=== PATIENT | female | born 1940 | race Caucasian/White ===

== ENCOUNTER 2022-11-15 13:24 | Inpatient (IN) | payer MEDICARE ==
[2022-11-15 13:59] LABS: #Basophils 0.1 10x3/uL (0.0-0.2); #Eosinphils 0.1 10x3/uL (0.0-0.5); #Monocytes 0.6 10x3/uL (0.0-1.1); #Neutrophils 5.6 10x3/uL (1.5-8.4); %Basophils 0.8 % (0.0-2.0); %Eosinophils 1.3 % (0.0-6.0); %Lymphocytes 24.4 % (18.0-47.0); %Neutrophils 65.9 % (40.0-75.0); Hemoglobin 15.4 g/dL (12.0-15.5); Mean Corpuscular HGB CONC 33.6 g/dL (32.0-36.0); Mean Corpuscular Hemoglobin 30.4 pg (27.0-33.0); Mean Corpuscular Volume 90.7 fl (81.6-98.3); Mean Platelet Volume 10.4 fl (7.4-10.4); Platelet Count 235 10x3/uL (150-450); RBC Distribution Width 12.2 % (11.5-14.5); Red Blood Cell (RBC) Count 5.06 10x6/uL (3.90-5.03); White Blood Cell (WBC) Count 8.4 10x3/uL (3.5-10.5)
[2022-11-15] MEDS ORDERED: Iopamidol 370 76% 100 ML VIAL ONE (13:59)
[2022-11-15 14:12] LABS: INR-International Normal Ratio 0.9; PTT 25.7 sec (22.0-33.0); Prothrombin Time 9.9 sec (9.5-12.1)
[2022-11-15] MEDS ORDERED: Aspirin Chewable 81 MG TAB ONE (14:12)
[2022-11-15 14:14] LABS: ALT (SGPT) 17 U/L (8-55); AST (SGOT) 25 U/L (5-34); Alkaline Phosphatase 81 U/L (40-110); Anion Gap 16 mmol/L (10-20); BUN (Urea Nitrogen) 14 mg/dL (9.8-20.1); Bilirubin, Total 1.7 mg/dL (0.2-1.2); Calc. Creatinine Clearance 0 mL/min (70-130); Calcium 9.8 mg/dL (7.8-10.44); Carbon Dioxide 24 mmol/L (23-31); Chloride 106 mmol/L (98-107); Estimated GFR 68; Globulin 2.2 g/dL (2.4-3.5); Glucose 90 mg/dL (83-110); Potassium 4.3 mmol/L (3.5-5.1); Protein, Total 7.2 g/dL (5.8-8.1); Sodium 142 mmol/L (136-145)
[2022-11-15] MEDS ORDERED: Ondansetron ODT 4 MG TAB PO PRN (15:17)
[2022-11-15] MEDS ORDERED: hydrALAZINE 20 MG/ML VIAL SLOW IVP PRN (15:17)
[2022-11-15] MEDS ORDERED: Ondansetron PF 4 MG/2 ML Vial IVP PRN (15:17)
[2022-11-15] MEDS ORDERED: Acetaminophen 325 MG TAB PO PRN (15:17)
[2022-11-15] MEDS ORDERED: Acetaminophen 650 MG Suppository PR PRN (15:17)
[2022-11-15] MEDS ORDERED: Calcium Carbonate 500 MG ChewTAB PO PRN (15:17)
[2022-11-15] MEDS ORDERED: Senokot S 8.6-50 MG TAB PO PRN (15:17)
[2022-11-15] MEDS ORDERED: Clopidogrel Bisulfate 75 MG TAB PO SCH (17:30)
[2022-11-15 17:48] VITALS: BMI 28.0
[2022-11-15] MEDS: Sodium Chloride 0.9% 1,000 ML IV SCH (17:51)
[2022-11-15] MEDS: Atorvastatin Calcium 40 MG TAB PO SCH (20:38)
[2022-11-16 04:09] LABS: #Basophils 0.1 10x3/uL (0.0-0.2); #Eosinphils 0.2 10x3/uL (0.0-0.5); #Monocytes 0.7 10x3/uL (0.0-1.1); #Neutrophils 3.9 10x3/uL (1.5-8.4); %Basophils 0.8 % (0.0-2.0); %Monocytes 10.1 % (0.0-10.0); %Neutrophils 54.8 % (40.0-75.0); Hemoglobin 12.8 g/dL (12.0-15.5); Mean Corpuscular HGB CONC 32.8 g/dL (32.0-36.0); Mean Corpuscular Hemoglobin 30.1 pg (27.0-33.0); Mean Corpuscular Volume 91.8 fl (81.6-98.3); Mean Platelet Volume 10.5 fl (7.4-10.4); Platelet Count 199 10x3/uL (150-450); RBC Distribution Width 12.4 % (11.5-14.5); Red Blood Cell (RBC) Count 4.25 10x6/uL (3.90-5.03); White Blood Cell (WBC) Count 7.1 10x3/uL (3.5-10.5)
[2022-11-16 04:19] LABS: ALT (SGPT) 15 U/L (8-55); AST (SGOT) 18 U/L (5-34); Albumin 3.6 g/dL (3.4-4.8); Alkaline Phosphatase 61 U/L (40-110); Anion Gap 14 mmol/L (10-20); BUN (Urea Nitrogen) 15 mg/dL (9.8-20.1); Bilirubin, Total 1.4 mg/dL (0.2-1.2); Calc. Creatinine Clearance 73 mL/min (70-130); Calcium 8.5 mg/dL (7.8-10.44); Carbon Dioxide 25 mmol/L (23-31); Cardiac Risk 3.6 (Less than 4.5); Chloride 108 mmol/L (98-107); Cholesterol 148 mg/dl (< 200 Desired); Estimated GFR 78; HDL Cholesterol 41 mg/dL (>60 Neg Risk); LDL Cholesterol, Calculated 57 mg/dL; Potassium 4.1 mmol/L (3.5-5.1); Protein, Total 5.6 g/dL (5.8-8.1); Sodium 143 mmol/L (136-145); Triglycerides 248 mg/dL (Less than 150)
[2022-11-16 04:25] LABS: Glucose 91 mg/dL (83-110)
[2022-11-16] MEDS: Sodium Chloride 0.9% 1,000 ML IV SCH (04:41)
[2022-11-16] MEDS: Levothyroxine Sodium 75 MCG TAB PO SCH (07:07)
[2022-11-16] MEDS: Clopidogrel Bisulfate 75 MG TAB PO SCH (08:09)
[2022-11-16] MEDS: Aspirin 81 mg Enteric Coated Tablet PO SCH (08:09)
[2022-11-16 13:52] LABS: Hemoglobin A1c 5.2 % (4.0-6.0)
[2022-11-16] MEDS: Atorvastatin Calcium 40 MG TAB PO SCH (21:43)
[2022-11-17] MEDS: Levothyroxine Sodium 75 MCG TAB PO SCH (05:54)
[2022-11-17 06:28] LABS: Anion Gap 13 mmol/L (10-20); BUN (Urea Nitrogen) 16 mg/dL (9.8-20.1); Calc. Creatinine Clearance 68 mL/min (70-130); Calcium 8.6 mg/dL (7.8-10.44); Carbon Dioxide 24 mmol/L (23-31); Chloride 109 mmol/L (98-107); Estimated GFR 72; Glucose 100 mg/dL (83-110); Potassium 4.1 mmol/L (3.5-5.1); Sodium 142 mmol/L (136-145)
[2022-11-17] MEDS ORDERED: Electrolyte Replacement Protocol 1 EACH FS SCH (07:30)
[2022-11-17 08:56] LABS: Phosphorus 3.1 mg/dL (2.3-4.7)
[2022-11-17] MEDS ORDERED: Metamucil PACK PO SCH (09:00)
[2022-11-17] MEDS ORDERED: PSYLLIUM HUSK 0.4 GM PO SCH (09:00)
[2022-11-17] MEDS ORDERED: Folic Acid 1 MG TAB PO SCH (09:00)
[2022-11-17] MEDS ORDERED: Cyanocobalamin (Vitamin B-12) 1,000 MCG TAB PO SCH (09:00)
[2022-11-17] MEDS ORDERED: Multivit, Therapeutic 1 TAB PO SCH (09:00)
[2022-11-17 09:11] LABS: ALT (SGPT) 19 U/L (8-55); AST (SGOT) 22 U/L (5-34); Albumin 4.5 g/dL (3.4-4.8); Alkaline Phosphatase 80 U/L (40-110); Bilirubin, Direct 0.5 mg/dL (0.1-0.3); Bilirubin, Total 1.9 mg/dL (0.2-1.2); Magnesium 2.1 mg/dL (1.6-2.6); Protein, Total 7.1 g/dL (5.8-8.1)
[2022-11-17] MEDS: Clopidogrel Bisulfate 75 MG TAB PO SCH (10:40)
[2022-11-17] MEDS: Aspirin 81 mg Enteric Coated Tablet PO SCH (10:40)
[2022-11-17 12:40] VITALS: BP 163/73; TEMP 98.9
== END 2022-11-17 14:15 | disposition home or self-care (01) | DRG 65 ==
LOC: CSHERS 13:24 → SUATTDRO 13:24 → CSHTELE 16:50
PROVIDERS: ADMIT Internal Medicine; ATTEND Internal Medicine
DX: I63.9 Cerebral infarction, unspecified (principal); G81.91 Hemiplegia, unspecified affecting right dominant side; E78.5 Hyperlipidemia, unspecified; E03.9 Hypothyroidism, unspecified; R29.810 Facial weakness; R47.01 Aphasia; R29.702 NIHSS score 2; R47.1 Dysarthria and anarthria; E11.9 Type 2 diabetes mellitus without complications; D64.9 Anemia, unspecified; Z79.890 Hormone replacement therapy; Z79.899 Other long term (current) drug therapy
CPT/HCPCS: 0042T; 36415; 36416; 70450; 70551; 80048; 80053; 80061; 80076; 83036; 83735; 84100; 84443; 84484; 85025; 85610; 85730; 93005; 93306; 94760; 94762; J1650; J7050; Q9967